=== PATIENT | male | born 2005 | race Caucasian/White ===

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

== ENCOUNTER 2024-12-21 16:23 | Emergency (ER) | payer OTHER, BC, SELFPAY ==
[2024-12-21 16:23] VITALS: BP 157/83; PULSE 97; RESP 18; TEMP 36.8; O2SAT 99
--- NOTE | 2024-12-21 16:40 | ED_ITS ---
HPI - Male Genitourinary General Chief complaint: Urogenital-Male Stated complaint: scrotal pain Time Seen by Provider: 12/21/24 16:38 Source: patient Mode of arrival: ambulatory Limitations: no limitations History of Present Illness HPI Narrative: 19 years old white male came to the emergency room with right testicular pain started 3 days ago. Patient denies any fever, chills, nausea, vomiting, trauma or new sexual activities. . Patient denies any urinary symptoms. Related Data Allergies Allergy/AdvReac Type Severity Reaction Status Date / Time No Known Allergies Allergy Mild Verified 12/21/24 16:32 Review of Systems 2 Review of Systems: All systems reviewed & are unremarkable except as noted in HPI and below PMFSH Past Medical History Medical History Claustrophobia Fibula fracture Surgical History Surgical History History of elbow surgery Right elbow 2009 Family History Family History Other Arthritis Breast cancer Depression Diabetes mellitus Hypertension Lung cancer Social History Social History Smoking status: Current every day smoker Tobacco type: e-cigarettes/vaping Alcohol intake: current Substance use: unknown Living arrangements: with family Occupation/Education: student Gender identity (if verbalized by the patient): Male Exam 2 Narrative: General appearance: Well-developed, well-nourished Skin: Normal color Head: Normocephalic, nontraumatic Eyes: Clear conjunctiva ENT: Oropharynx normal, ears normal, nose normal Neck: Supple, nontender Chest and respiratory: Airway patent, no respiratory distress, no accessory muscle use Heart: Regular rate/rhythm Abdomen: Soft, nontender, no organomegaly, quiet bowel sounds Vascular: Normal peripheral pulses, normal capillary refill. Musculoskeletal: Normal range of motion, nontender back Neurologic: Alert and oriented ?3, LOADING DOCK HAND is normal as tested, no gross motor deficit : Male General Exam: Yes normal external exam and Yes tenderness ( right testicular tenderness) Penis: Yes normal penis Meatus: meatus normal S crotum: scrotum normal and testes descended bilaterally Testes: Enlarged testicle(s) present, epididymal tenderness and testicular tenderness Male genitals images: 1. Large, tender right testicle 2. large tender right testicle Course Consultations Consultation #1: Dr. Stewart ED physician at [facility] who accepted patient transfer Date: 12/21/24 Vital Signs Vital signs: Vital Signs Temperature 36.8 C 12/21/24 16:23 Pulse Rate 97 12/21/24 16:23 Respiratory Rate 18 12/21/24 16:23 Blood Pressure 157/83 H 12/21/24 16:23 Pulse Oximetry 99 12/21/24 16:23 Oxygen Delivery Room Air 12/21/24 16:23 Temperature 36.8 C 12/21/24 16:23 Pulse Rate 97 12/21/24 16:23 Respiratory Rate 18 12/21/24 16:23 Blood Pressure 157/83 H 12/21/24 16:23 Pulse Oximetry 99 12/21/24 16:23 Oxygen Delivery Room Air 12/21/24 16:23 MDM - Male Genitourinary MDM Narrative Medical decision making narrative: patient came with nontraumatic right testicular pain Vital signs are stable Physical examination consistent with tenderness of the right testicle differential diagnosis epididymitis, hydrocele, orchitis, less likely torsion. Recommendation includes a testicular ultrasound, urinalysis. Transferred to [facility] ED -ED for testicular ultrasound Discussed with Dr. Stewart, the ED physician, who accepted patient transfer Differential Diagnosis Differential diagnosis: Likely other (As above) Critical Care Time Critical Care Time Critical Care Time: No Discharge Plan Discharge Clinical Impression: Pain in right testicle Patient Disposition: Acute Care Hospital Condition: Stable Additional Instructions: transferred to [facility] for testicular ultrasound Patient Language: Barbadian Prescriptions: No Action ibuprofen 800 mg tablet 800 mg PO TID Qty: 20 0RF omeprazole magnesium [Prilosec OTC] 20 mg tablet,delayed release (DR/EC) 20 mg PO BID Qty: 20 0RF tramadol 50 mg tablet 50 mg PO BID PRN (Reason: pain) Qty: 6 0RF Follow-up/Referrals: Dano Morris MD [Physician] -
--- OUTSIDE RECORDS SUMMARY | 2024-12-21 17:32 | XMS_ITS | Clinical Summary ---
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 Gender Identity Not on file Sexual Orientation Not on file Last Filed Vital Signs Vital Sign Reading Time Taken Comments Blood Pressure - - Pulse - - Temperature - - Respiratory Rate - - Oxygen Saturation - - Inhaled Oxygen Concentration - - Weight 68 kg (150 lb) 05/08/2018 4:34 PM CDT Height 175.3 cm (5' 9 ) 05/08/2018 4:34 PM CDT Body Mass Index 22.15 05/08/2018 4:34 PM CDT Plan of Treatment Health Maintenance Due Date Last Done Comments Annual Physical 2006 HPV Vaccines (1 - Male 3-dos e series) 2018 Meningococcal B Vaccine (1 o f 2 - Standard) 2019 Hepatitis C 2021 DTaP, Tdap and Td Vaccines ( 1 - Tdap) 2022 Hepatitis B Vaccines (1 of 3 - 19+ 3-dose series) 2022 COVID-19 Vaccine (1 - 2023-2 5 season) 2024 Meningococcal Vaccine Aged Out No bandar kellie eligible based on patient's age to complete this topic Pneumococcal Vaccine: Pediat rics (0 to 5 Years) and At-Risk Patients (6 to 64 Years) Aged Out No longer eligible b ased on patient's age to complete this topic RSV Immunizations Under 20 Months Aged Out No longer eligible based on patient's age to complete this topic
--- OUTSIDE RECORDS SUMMARY | 2024-12-21 17:32 | XMS_ITS | Clinical Summary ---
Author Organization [facility] Address [address] [place] [address] Care Team Providers Care Medical Economics Consultant Name Role Phone Gianni Sykes MD Primary Care Provider Source Comments [facility],non-owned Affiliates and Associated Physician Practices is amultiple site organization consisting of ambulatory clinics and hospital sitesin [place], [place], [place] and [place]. This disclosure is being madepursuant to the Care Everywhere program and may not contain all information available regarding this patient. Last updated 18.[facility] [employer] Social History Tobacco Use Types Packs/Day Years Used Date Smoking Tobacco: Never Assessed Sex and Gender Information Value Date Recorded Sex Assigned at Not on file Gender Identity Not on file Sexual Orientation Not on file Plan of Treatment Health Maintenance Due Date Last Done Comments HIV SCREENING 2018 HPV VACCINE (1 - Male 3-dose series) 2018 MENINGOCOCCAL (Group B) VACC INE SHARED DECISION-MAKING (1 of 2 - Standard) 2019 HEPATITIS C SCREENING 07/16/2021 DTAP/TDAP/TD VACCINES (1 - Tdap) 2022 HEPATITIS B VACCINE (1 of 3 - 19+ 3-dose series) 2022 COVID-19 VACCINE (1 - 2023-2 5 season) 2024 INFLUENZA VACCINE (#1) 2024 DEPRESSION SCREENING 09/23/2024 ZOSTER VACCINE (1 of 2) 2053 HIB VACCINE Aged Out No longer eligi ble based on patient's age to complete this topic MENINGOCOCCAL GROUPS A/C/Y/W VACCINE Aged Out No longer eligible b ased on patient's age to complete this topic PNEUMOCOCCAL VACCINE Aged Out No long er eligible based on patient's age to complete this topic Care Teams Medical Economics Consultant Relationship Specialty Start Date End Date Gianni Sykes MD [address] [place] [address] PCP - General 10/06/09
== END 2024-12-21 16:50 | disposition short-term general hospital (02) ==
PROVIDERS: Emergency Provider Emergency Medicine
DX: N50.811 Right testicular pain (principal); F17.290 Nicotine dependence, other tobacco product, uncomplicated
CPT/HCPCS: 99282

== ENCOUNTER 2024-12-21 17:26 | Emergency (ER) | payer BC, OTHER, SELFPAY ==
--- NOTE | ~2024-12-21 | US_ITS ---
EXAMINATION: US scrotum doppler DATE: 12/21/2024 18:09 INDICATION: Testicular pain TECHNIQUE: Sonographic evaluation of the scrotum was performed assessing grayscale appearance and col or Doppler flow. Spectral Doppler evaluation was also performed. COMPARISON: None. FINDINGS: RIGHT TESTICLE: The right testicle measures 5 x 2.5 x 3.3 cm. Arterial and venous flow are present. No right-sided hydrocele is present. RIGHT EPIDIDYMIS: The right epididymis measures 7.6 mm. Prominent vasculature with Valsalva. Pre-Valsalva measurement 3.2 mm in greatest caliber. LEFT TESTICLE: The left testicle measures 4.9 x 2.7 x 3.2 cm. Arterial and venous flow are demonstrated. Trace left-sided hydrocele is present. LEFT EPIDIDYMIS: The left epididymis measures 7.3mm. Prominent vasculature with Valsalva. Pre-Valsalva measurement less than 3 mm. IMPRESSION: Right-sided hydrocele. No additional abnormality is appreciated. Reviewed, dictated and finalized at location A.
[2024-12-21 17:43] VITALS: BP 156/90; PULSE 87; RESP 16; TEMP 36.6; O2SAT 100
--- NOTE | 2024-12-21 17:48 | ED_ITS ---
HPI - Male Genitourinary General Chief complaint: Urogenital-Male <Lnyda Ruiz APRN - Last Filed: 12/21/24 17:51> Stated complaint: R. testicular swelling x2 days <Lynda Ruiz APRN - Last Filed: 12/21/24 17:51> Time Seen by Provider: 12/21/24 17:35 <Lynda Ruiz APRN - Last Filed: 12/21/24 17:51> Focused HPI: Patient is a 19-year-old male who presents to the ER with right testicular pain. He denies any trauma to the area. Patient reports his pain started on Saturday but then got better on Saturday. He reports pain started up again this morning along with swelling. Patient denies any recent fevers or concerns for STDs. He reports his last bowel movement was yesterday and it was normal for him. Patient reports he has increased pain when anything touches the site. GENERAL: Well-appearing, well-nourished, and in mild distress d/t discomfort. HEAD: Normocephalic, atraumatic. CHEST: Clear to auscultation. ?No respiratory distress. HEART: Regular rate and rhythm.? NEURO: ?Alert and oriented x3. Patient screened in triage and initial orders placed.? ?Additional care and disposition to be based upon?diagnostic testing and treatment. <Lynda Ruiz APRN - Last Filed: 12/21/24 17:51> Related Data Allergies/Adverse reactions: Allergies Allergy/AdvReac Type Severity Reaction Status Date / Time No Known Allergies Allergy Mild Verified 12/21/24 17:28 <Lynda Ruiz APRN - Last Filed: 12/21/24 17:51> Review of Systems Review of Systems: CONSTITUTIONAL: Denies fever GASTROINTESTINAL: Denies abdominal pain, nausea, vomiting GENITOURINARY: Reports dysuria. Denies hematuria. <Josie Curry PA-C - Last Filed: 12/21/24 21:18> All systems reviewed & are unremarkable except as noted in HPI and below <Josie Curry PA-C - Last Filed: 12/21/24 21:18> PMFSH Past Medical History Medical History: Medical History Claustrophobia Fibula fracture <Lynda Ruiz APRN - Last Filed: 12/21/24 17:51> Surgical History Surgical History: Surgical History History of elbow surgery Right elbow 2008 <Lynda Ruiz APRN - Last Filed: 12/21/24 17:51> Family History Family History: Family History Other Arthritis Breast cancer Depression Diabetes mellitus Hypertension Lung cancer <Lynda Ruiz APRN - Last Filed: 12/21/24 17:51> Social History Social History: Social History Smoking status: Current every day smoker Tobacco type: e-cigarettes/vaping Alcohol intake: current Substance use: unknown Living arrangements: with family Occupation/Education: student Gender identity (if verbalized by the patient): Male <Lynda Ruiz, WINDOWS APPLICATION ADMINISTRATOR - Last Filed: 12/21/24 17:51> Exam Narrative: GENERAL: Well-appearing, well-nourished, and in no acute distress. HEAD: Normocephalic, atraumatic. EYES: EOMI. CHEST: Clear to auscultation. No respiratory distress. No wheezes rales or rhonchi HEART: Regular rate and rhythm. No murmur heard. Normal peripheral pulses. EXTREMITIES: Normal range of motion. No edema. SKIN: Warm, dry, no rash. NEURO: No focal deficits. Alert and oriented x3. PSYCH: Normal mood and affect MALE GENITAL: Normal external genitalia. No rashes or abnormal urethral discharge. Right testicle tender to palpation <Josie Curry PA-C - Last Filed: 12/21/24 21:18> Course Course Emergency Course: Patient updated on workup and agrees with plan of care <Josie Curry PA-C - Last Filed: 12/21/24 21:18> Vital Signs Vital signs: Vital Signs Temperature 97.8 F 12/21/24 17:43 Pulse Rate 87 12/21/24 17:43 Respiratory Rate 16 12/21/24 17:43 Blood Pressure 156/90 H 12/21/24 17:43 Pulse Oximetry 100 12/21/24 17:43 Oxygen Delivery Room Air 12/21/24 17:43 Temperature 97.8 F 12/21/24 17:43 Pulse Rate 87 12/21/24 17:43 Respiratory Rate 16 12/21/24 17:43 Blood Pressure 156/90 H 12/21/24 17:43 Pulse Oximetry 100 12/21/24 17:43 Oxygen Delivery Room Air 12/21/24 17:43 <Lynda Ruiz, WINDOWS APPLICATION ADMINISTRATOR - Last Filed: 12/21/24 17:51> Vital Signs Temperature 97.8 F 12/21/24 17:43 Pulse Rate 87 12/21/24 17:43 Respiratory Rate 16 12/21/24 17:43 Blood Pressure 156/90 H 12/21/24 17:43 Pulse Oximetry 100 12/21/24 17:43 Oxygen Delivery Room Air 12/21/24 17:43 Temperature 97.8 F 12/21/24 17:43 Pulse Rate 87 12/21/24 17:43 Respiratory Rate 16 12/21/24 17:43 Blood Pressure 156/90 H 12/21/24 17:43 Pulse Oximetry 100 12/21/24 17:43 Oxygen Delivery Room Air 12/21/24 17:43 <Josie Curry PA-C - Last Filed: 12/21/24 21:18> MDM - Male Genitourinary MDM Narrative Medical decision making narrative: Patient presents the emergency department for right testicular pain. He is afebrile and nontoxic appearing. Testicular ultrasound shows a right-sided varicocele. UA with 1+ leuk esterase, 51-100 white blood cells. Chlamydia is positive, gonorrhea and Trichomonas are negative. Patient given a dose of Rocephin. Will be discharged 10 days of doxycycline. Instructed to follow-up with PCP. He was given warnings to return to the ER <Josie Curry PA-C - Last Filed: 12/21/24 21:18> Differential Diagnosis Differential diagnosis: Likely urinary tract infection, urethritis and epididymitis <Josie Curry PA-C - Last Filed: 12/21/24 21:18> Lab Data Attestation: I reviewed the patient's lab results. <Josie Curry PA-C - Last Filed: 12/21/24 21:18> Labs: Lab Results 12/21/24 12/21/24 Range/Units 19:25 19:26 Urine Color Yellow (Yellow) Urine Appearance Cloudy H (Clear) Urine pH 7.5 (5.0-9.0) Ur Specific [place] 1.020 (1.001-1.035) Urine Protein Negative (Negative) mg/dL Urine Glucose (UA) Negative (Negative) mg/dL Urine Ketones Negative (Negative) mg/dL Ur Blood (Man) Negative (Negative) Urine Nitrate Negative (Negative) Urine Bilirubin Negative (Negative) Urine Urobilinogen 1.0 (<2.0) mg/dL Leukocyte Esterase Rfl 1+ H (Negative) NIKIA/UL Urine RBC 0-2 (0-2) /hpf Urine WBC 51-100 H (0-3) /hpf Ur Squamous Epith Cells None seen (Few) /hpf Urine Bacteria None seen /hpf Urine Casts 0-2 C. trachomatis (PCR) Detected A (NOT DETECTE) N. gonorrhoeae (PCR) Not detected (NOT DETECTE) T. vaginalis (PCR) Not detected (NOT DETECTE) <Lynda Ruiz APRN - Last Filed: 12/21/24 17:51> Lab Results 12/21/24 12/21/24 Range/Units 19:25 19:26 Urine Color Yellow (Yellow) Urine Appearance Cloudy H (Clear) Urine pH 7.5 (5.0-9.0) Ur Specific [place] 1.020 (1.001-1.035) Urine Protein Negative (Negative) mg/dL Urine Glucose (UA) Negative (Negative) mg/dL Urine Ketones Negative (Negative) mg/dL Ur Blood (Man) Negative (Negative) Urine Nitrate Negative (Negative) Urine Bilirubin Negative (Negative) Urine Urobilinogen 1.0 (<2.0) mg/dL Leukocyte Esterase Rfl 1+ H (Negative) NIKIA/UL Urine RBC 0-2 (0-2) /hpf Urine WBC 51-100 H (0-3) /hpf Ur Squamous Epith Cells None seen (Few) /hpf Urine Bacteria None seen /hpf Urine Casts 0-2 C. trachomatis (PCR) Detected A (NOT DETECTE) N. gonorrhoeae (PCR) Not detected (NOT DETECTE) T. vaginalis (PCR) Not detected (NOT DETECTE) <Josie Curry PA-C - Last Filed: 12/21/24 21:18> Imaging Data Radiologist's impression: ITS Impressions Scrotum Ultrasound 12/21/24 18:54 IMPRESSION: Right-sided hydrocele. No additional abnormality is appreciated. ADDENDUM: 12/21/24 1924 Please note that the impression should read a right-sided VARICOCELE. Trace left-sided hydrocele. <Josie Curry PA-C - Last Filed: 12/21/24 21:18> Critical Care Time Critical Care Time Critical Care Time: No <Josie Curry PA-C - Last Filed: 12/21/24 21:18> Discharge Plan Discharge Clinical Impression: Acute epididymitis, Varicocele, Chlamydia <Lynda Ruiz APRN - Last Filed: 12/21/24 17:51> Patient Disposition: Home, Self-Care <Lynda Ruiz APRN - Last Filed: 12/21/24 17:51> Condition: Stable <Lynda Ruiz APRN - Last Filed: 12/21/24 17:51> Instructions: Antibiotic Form, Chlamydia (ED), Safe Sex Practices (ED), Epididymitis (ED) <Lynda Ruiz APRN - Last Filed: 12/21/24 17:51> Additional Instructions: Return to the ER if you experience fever, abdominal pain with nausea and vomiting, you are unable to keep down liquids or solids, or any other symptoms that are concerning to you Tylenol or ibuprofen as needed for pain. Take oral antibiotics as prescribed Follow up with primary care doctor <Lynda Ruiz APRN - Last Filed: 12/21/24 17:51> Patient Language: Uzbek <Lynda Ruiz APRN - Last Filed: 12/21/24 17:51> Prescriptions: New doxycycline hyclate 100 mg tablet 100 mg PO BID 10 Days Qty: 20 0RF No Action ibuprofen 800 mg tablet 800 mg PO TID Qty: 20 0RF omeprazole magnesium [Prilosec OTC] 20 mg tablet,delayed release (DR/EC) 20 mg PO BID Qty: 20 0RF tramadol 50 mg tablet 50 mg PO BID PRN (Reason: pain) Qty: 6 0RF <Lynda Ruiz APRN - Last Filed: 12/21/24 17:51> Follow-up/Referrals: Fabricio Painting MD [Physician] - PHYSICIAN,ADOLESCENT COUNSELOR [Primary Care Provider] - <Lynda Ruiz APRN - Last Filed: 12/21/24 17:51>
--- OUTSIDE RECORDS SUMMARY | 2024-12-21 18:37 | XMS_ITS | Clinical Summary ---
Author Organization [facility] Address [address] [place] [address] Care Team Providers Care Sample Sewer Name Role Phone Gianni Sykes MD Primary Care Provider Source Comments [facility],non-owned Affiliates and Associated Physician Practices is amultiple site organization consisting of ambulatory clinics and hospital sitesin [place], [place], [place] and [place]. This disclosure is being madepursuant to the Care Everywhere program and may not contain all information available regarding this patient. Last updated 18.[facility] [employer] Social History Tobacco Use Types Packs/Day Years [...] age to complete this topic Care Teams Sample Sewer Relationship Specialty Start Date End Date Gianni Sykes MD [address] [place] [address] PCP - General 10/06/09
--- OUTSIDE RECORDS SUMMARY | 2024-12-21 18:37 | XMS_ITS | Clinical Summary ---
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
[2024-12-21 19:39] LABS: Add Urine Microscopic? YES; Appearance Urine Cloudy (Clear); Bacteria Urine None Seen /hpf; Bilirubin Urine Negative (Negative); Blood Urine Negative (Negative); Color Urine Yellow (Yellow); Glucose Urine UA Negative (Negative); Ketones Urine Negative (Negative); Leukocyte Esterase Ur 1+ LEU/UL (Negative); Nitrate Urine Negative (Negative); Non Pathogenic Casts 0-2; Protein Urine Negative (Negative); RBC Urine 0-2 /hpf (0-2); Squamous Epithelial Cell Urine None Seen /hpf (Few); WBC Urine 51-100 /hpf (0-3); pH Urine 7.5 (5.0-9.0)
[2024-12-21] MEDS: KETOROLAC 30 MG/ML VIAL (*BKC) IM (20:10)
[2024-12-21 20:42] LABS: Trichomonas Vag PCR NOT DETECTED (NOT DETECTE)
[2024-12-21 21:05] LABS: Chlamydia trachomatis DETECTED (NOT DETECTE); Neisseria gonorrhoeae PCR NOT DETECTED (NOT DETECTE)
[2024-12-21] MEDS: cefTRIAXone 1 GM VIAL 0.5 GM IM (21:30)
== END 2024-12-21 21:35 | disposition home or self-care (01) ==
PROVIDERS: Registered Nurse; Emergency Provider Physician Assistant
DX: I86.1 Scrotal varices (principal); N45.1 Epididymitis; A74.9 Chlamydial infection, unspecified; F17.290 Nicotine dependence, other tobacco product, uncomplicated
CPT/HCPCS: 76870; 81001; 87086; 87491; 87591; 87661; 93976; 96372; 99284; J0696; J1885